=== PATIENT | female | born 1975 | race Caucasian/White ===

== ENCOUNTER 2020-01-01 09:12 | Emergency (ER) | payer OTHER ==
[~2020-01-01] VITALS: Ht 167.6 cm; Wt 81.6 kg
[2020-01-01 09:16] VITALS: BP 154/99
[2020-01-01 10:48] VITALS: BP 154/99
== END 2020-01-01 10:45 | disposition home or self-care (01) ==
LOC: MED 09:12
DX: S93.401A Sprain of unspecified ligament of right ankle, initial encounter (principal); S90.561A Insect bite (nonvenomous), right ankle, initial encounter; W57.XXXA Bitten or stung by nonvenomous insect and other nonvenomous arthropods, initial encounter; W22.09XA Striking against other stationary object, initial encounter; Y93.89 Activity, other specified; Y92.89 Other specified places as the place of occurrence of the external cause; Y99.8 Other external cause status
CPT/HCPCS: 73610; 99283